=== PATIENT | female | born 1965 | race Caucasian/White ===

== ENCOUNTER → 2016-05-11 | Outpatient (CLI) | payer BC ==
[~2016-05-11] MED LIST: ALBUTEROL17 GM INH; ASPIRIN81 M2 PO; CALCIUM + D 6001 TA1 PO; CALCIUM500 MG; DEPO-PROVER150 MG/ML INJ; FLONASE 0.05% N16 G1; FLONASE16 GM; GLUCOSAMINE500 M1; LIPITOR; LIPITOR20 MG PO; LISINOPRIL-HCTZ1 T14 PO; LISINOPRIL10 MG; MOTRIN600 MG PO; NAPROSYN500 MG PO; ONDANSETRON HCL4 MG PO; PANTOPRAZOLE SO40 MG PO; REGLAN10 MG; SIMVASTATIN40 MG PO; TRAMADOL HCL50 M2 PO; ULTRAM PO; VYTORIN PO; ZESTORETIC 10/11 TAB PO; ZESTORETIC 20/11 TAB PO; ZOCOR
--- NOTE | ~2016-05-11 | CT5 ---
[facility] A Service of [facility] RADIOLOGY TEXT RESULTS PATIENT: DANIELLA RIVERS LOCATION: [facility] : 63 UNIT #: [id number] AGE: [address]: Quique Anderson MD SEX: F ORDER DR: [id number] [id number] [facility] [place]. [place], [place] [address] [id number] O MR#: [id number] [facility] #: [id number] NAME: DANIELLA RIVERS. : 1965 SEX: F STUDY DATE/TIME: 05/11/2016 8:03 UNIT: [facility] ROOM: STUDY DESCRIPTION: CT Abdomen W Cont Attending Physician: Quique Anderson M.D. Referring Physician: Quique Anderson M.D. Ordering Physician: Quique Anderson M.D. Primary Care Physician: Zander Quan M.D. MEDICAL IMAGING REPORT This report is preliminary unless electronic signature is present EXAM CT of the abdomen with IV contrast dated 05/11/2016 COMPARISON STUDIES 12/08/2015 HISTORY Lung cancer, 3-month followup, nausea for a few weeks. TECHNIQUE Transaxial imaging of the abdomen was obtained with IV contrast media. Please see accompanying chest CT for characterization of the lung bases. This CT exam was performed with one or more of the following radiation dose reduction techniques: automatic exposure control, adjustment of mA and/or kV according to patient size, and iterative reconstruction. FINDINGS Scans through the liver parenchyma show evidence of diffuse hepatic steatosis. The gallbladder is normal. There are no focal liver lesions. Spleen is normal. The adrenal glands are normal and the pancreas is normal. Both kidneys are normal. Postop changes of prior lumbar fusion are present. No dilated or thickened loops of bowel are identified in the abdomen. Bone windows are reviewed. No lytic or blastic lesions are seen. CONCLUSION 1. Hepatic steatosis. 2. Postop changes of prior lumbar fusion. 3. No evidence of intraabdominal metastatic disease. Dictated by... Chapito Kam M.D. [facility] A Service of [facility] RADIOLOGY TEXT RESULTS PATIENT: DANIELLA RIVERS LOCATION: [facility] : 63 UNIT #: [id number] AGE: [address]: Quique Anderson MD SEX: F ORDER DR: THIS IS AN ELECTRONICALLY VERIFIED REPORT Chapito Kam M.D. at 05/12/2016 12:00 PM MYA/moisés TD: 05/11/2016 16:33 JOB #: [id number] MEDICAL IMAGING REPORT Page 1 of 1 COPY
[2016-05-11 09:12] LABS: POC - CREATININE 0.93 mg/dL (0.44-1.03); POC - GFR >60.0 mL/min (>60)
== END | disposition home or self-care (01) ==
LOC: CCAT 07:53
PROVIDERS: Internal Medicine Hematology & Oncology
DX: C34.12 Malignant neoplasm of upper lobe, left bronchus or lung (principal); F41.9 Anxiety disorder, unspecified; R11.0 Nausea; H81.43 Vertigo of central origin, bilateral; K76.0 Fatty (change of) liver, not elsewhere classified; Z98.1 Arthrodesis status
CPT/HCPCS: 71260; 74160; 82565; Q9967

== ENCOUNTER → 2016-08-31 | Outpatient (CLI) | payer BC ==
[~2016-08-31] VITALS: Ht 162.6 cm; Wt 100.0 kg
--- NOTE | ~2016-08-31 | XA80 ---
[facility] A Service of [facility] RADIOLOGY TEXT RESULTS PATIENT: DANIELLA RIVERS LOCATION: [facility] : 63 UNIT #: [id number] AGE: [address]: Quique Anderson MD SEX: F ORDER DR: [id number] [facility] [address] [facility] [place], [place] [address] [id number] O MR#: [id number] Acc #: [id number] NAME: DANIELLA RIVERS. : 1965 SEX: F STUDY DATE/TIME: 08/31/2016 8:33 UNIT: [facility] ROOM: STUDY DESCRIPTION: XA CVC Remove Tunneled Cath W Attending Physician: Quique Anderson M.D. Ordering Physician: Quique Anderson M.D. Primary Care Physician: Zander Quan M.D. MEDICAL IMAGING REPORT This report is preliminary unless electronic signature is present EXAM Port removal HISTORY Lung cancer. Port no longer needed. TECHNIQUE The procedure was explained to the patient including risks, benefits and complications. Informed consent was obtained and a formal time-out procedure was utilized. Conscious sedation was employed with intravenous Versed and Fentanyl that was administered by nursing who was present and monitoring the patient during the examination. Total physician [id number] time during conscious sedation 25 minutes. Full barrier sterile technique was employed via standard protocol including long drapes, prepping of the skin with ChloraPrep, gowns, cap, gloves, masks, shoe covers. Using full barrier sterile technique and following local anesthesia with 1% Xylocaine as well as 1% Xylocaine with epinephrine, the port was removed without difficulty using combination of blunt and sharp dissection. Fluoroscopic evaluation of the chest afterwards shows no residual catheter fragments. 1 spot film obtained. Total fluoroscopy time 0.1 minutes. A port pocket was closed with an interrupted subcutaneous layer of 3-0 Vicryl suture followed by running 4-0 subcuticular stitch with Monocryl and Dermabond glue. The patient tolerated the procedure well. IMPRESSION Successful port removal with conscious sedation. Dictated by... Ozzy García M.D. [facility] A Service of [facility] RADIOLOGY TEXT RESULTS PATIENT: DANIELLA RIVERS LOCATION: [facility] #: [id number] : 63 UNIT #: [id number] AGE: [address]: Quique Anderson MD SEX: F ORDER DR: THIS IS AN ELECTRONICALLY VERIFIED REPORT Ozzy García M.D. at 09/01/2016 3:41 PM RLF/pcl TD: 08/31/2016 15:25 JOB #: [id number] MEDICAL IMAGING REPORT Page 1 of 1 COPY
[2016-08-31 07:13] LABS: INR 0.9; PARTIAL THROMBOPLASTIN TIME 29.2 SECONDS (23.5-31.3); PROTHROMBIN TIME (PATIENT) 9.5 SECONDS (10.0-11.7)
[2016-08-31 07:28] LABS: HEMATOCRIT 41.1 % (35.0-45.0); HEMOGLOBIN 13.4 gm/dL (12.0-16.0); MEAN CELL VOLUME 89.5 FL (83-96); MEAN CORPUSCULAR HEMOGLOBIN 29.1 PG (28-34); MEAN CORPUSCULAR HGB CONC 32.5 g/dL (30-36); MEAN PLATELET VOLUME 8.4 FL (6.5-11.5); RED BLOOD COUNT 4.59 X10e (3.90-5.30); RED CELL DISTRIBUTION WIDTH 14.2 % (11.0-15.5); WHITE BLOOD COUNT 9.4 X10e3 (4.0-10.5)
== END | disposition home or self-care (01) ==
LOC: CIVR 06:16
PROVIDERS: Internal Medicine Hematology & Oncology
DX: Z45.2 Encounter for adjustment and management of vascular access device (principal); C34.12 Malignant neoplasm of upper lobe, left bronchus or lung; F41.9 Anxiety disorder, unspecified; R11.0 Nausea; H81.43 Vertigo of central origin, bilateral; F17.200 Nicotine dependence, unspecified, uncomplicated; I10 Essential (primary) hypertension; E78.5 Hyperlipidemia, unspecified; M19.90 Unspecified osteoarthritis, unspecified site
CPT/HCPCS: 36415; 77001; 85027; 85610; 85730; J2250; J3010